=== PATIENT | male | born 1970 | race Caucasian/White ===

== ENCOUNTER 2017-06-12 19:37 | Emergency (ER) | payer OTHER ==
--- NOTE | 2017-06-12 21:02 | PDOC ---
Rapid Medical Evaluation Chief Complaint: Syncope/Near Syncope Time Seen by Provider: 06/12/17 20:57 Medical Evaluation: Allergies Allergy/AdvReac Type Severity Reaction Status Date / Time Penicillins Allergy Unknown Verified 09/02/15 14:17 06/12/17 20:57 I have performed a brief in-person evaluation of this patient. slipped of a ladder at work at 4 pm c/o right hip pain with pain to groin and pain running down right leg. fall after feeling dizzy. patient reports inhaling gas fumes and concerned about carbon monoxide exposure. PMHX: anxiety, diabetes. pertinent physical exam findings: patient alert ox3, reports feeling dizzy now. walking with limp able to weight bear. I have ordered the following: cbc, cmp, ekg, cardiac, carbo right hip/ pelvis the patient will proceed to the ED for further evaluation. 06/12/17 21:04 Discharge Disposition - Referrals Referrals: Gordo Aguayo MD [Primary Care Provider] - - Patient Instructions - Post Discharge Activity
[2017-06-12 21:07] VITALS: BP 133/78; PULSE 103; TEMP 97.6; BMI 34.0
[2017-06-12 21:41] LABS: BASOPHIL 0.9 % (0-2.0); EOSINOPHIL 1.1 % (0-4.5); MCH 31.1 pg (25.7-33.7); MCHC 33.7 g/dl (32.0-35.9); MEAN CELL VOLUME 92.1 fl (80-96); MEAN PLT VOLUME 7.3 fl (7.5-11.1); NEUTROPHILS 59.6 % (42.8-82.8); PLATELET COUNT 254 K/MM3 (134-434); WHITE BLOOD COUNT 12.4 K/mm3 (4.0-10.0)
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
[2017-06-12 22:26] LABS: ANION GAP 11 (8-16); BILIRUBIN,TOTAL 0.4 mg/dL (0.2-1.0); CALCIUM 8.7 mg/dL (8.5-10.1); CO2 23 mmol/L (21-32); CREATININE 0.8 mg/dL (0.7-1.3); GLUCOSE,RANDOM 269 mg/dL (74-106); SGPT/ALT 33 U/L (12-78); TOT PROT 7.7 g/dl (6.4-8.2)
[2017-06-12 22:28] LABS: ALK PHOS 101 U/L (45-117); TROPONIN I < 0.02 ng/ml (0.00-0.05)
[2017-06-12 22:32] LABS: SGOT/AST 24 U/L (15-37)
[2017-06-12 22:33] LABS: CPK 126 IU/L (39-308)
[2017-06-12] MEDS ORDERED: KETOROLAC TROMETHAMINE 30 MG/1 ML VIAL IVPUSH ONE (23:46)
[2017-06-12] MEDS ORDERED: KETOROLAC TROMETHAMINE 60 MG/2 ML VIAL IM ONE (23:53)
[2017-06-12] MEDS ORDERED: KETOROLAC TROMETHAMINE 60 MG/2 ML VIAL ONE (23:55)
[2017-06-13] MEDS ORDERED: IBUPROFEN 600 MG TABLET (FP) PO ONE (00:07)
--- NOTE | 2017-06-13 10:01 | EKG ---
Test Reason : Blood Pressure : / mmHG Vent. Rate : 098 BPM Atrial Rate : 098 BPM P-R Int : 158 ms QRS Dur : 094 ms QT Int : 356 ms P-R-T Axes : 035 -17 042 degrees QTc Int : 454 ms NORMAL SINUS RHYTHM CANNOT RULE OUT ANTERIOR INFARCT (CITED ON OR BEFORE 19-NOV-2014) ABNORMAL ECG WHEN COMPARED WITH ECG OF 19-NOV-2014 09:24, NO SIGNIFICANT CHANGE WAS FOUND Confirmed by TROY ROBERTS MD ([id number]) on 06/13/2017 10:00:59 AM Referred By: Confirmed By:TROY ROBERTS MD
== END 2017-06-13 02:06 | disposition home or self-care (01) ==
LOC: JER 19:37
DX: T58.01XA Toxic effect of carbon monoxide from motor vehicle exhaust, accidental (unintentional), initial encounter (principal); R42 Dizziness and giddiness; M25.551 Pain in right hip; W11.XXXA Fall on and from ladder, initial encounter; Y93.89 Activity, other specified; Y92.524 Gas station as the place of occurrence of the external cause; Y99.0 Civilian activity done for income or pay; I10 Essential (primary) hypertension; E11.9 Type 2 diabetes mellitus without complications; Z79.84 Long term (current) use of oral hypoglycemic drugs; E78.00 Pure hypercholesterolemia, unspecified; F41.9 Anxiety disorder, unspecified; F17.210 Nicotine dependence, cigarettes, uncomplicated
CPT/HCPCS: 36415; 71020-TC; 73523-TC; 73552-TC-RT; 76870-TC; 80053; 82550; 84484; 85025; 93005; 93010; 99281-25

== ENCOUNTER 2018-06-14 10:58 | Inpatient (IN) | payer OTHER ==
[2018-06-14 11:35] VITALS: BMI 34.0
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
[2018-06-14] MEDS ORDERED: METHADONE HCL 10 MG TABLET (FOR DETOX USE ONLY) PO ONE ×2 (15:09→23:00)
[2018-06-14] MEDS ORDERED: guaiFENesin/D-METHORPHAN HB 10 ML UNIT-DOSE CUPS PO PRN (15:09)
[2018-06-14] MEDS ORDERED: P-EPHED 60MG/TRIPROLIDI 2.5MG TABLET PO PRN (15:09)
[2018-06-14] MEDS ORDERED: NICOTINE POLACRILEX 4 MG GUM BUC PRN (15:09)
[2018-06-14] MEDS ORDERED: MAG HYDROX/AL HYDROX/SIMETH 30 ML UNIT-DOSE CUP PO PRN (15:09)
[2018-06-14] MEDS ORDERED: ACETAMINOPHEN 325 MG TABLET (FP) PO PRN (15:09)
[2018-06-14] MEDS ORDERED: LOPERAMIDE HCL 2 MG CAPSULE PO PRN (15:09)
[2018-06-14] MEDS ORDERED: MENTHOL/PHENOL 1 EACH UD MM PRN (15:09)
[2018-06-14] MEDS ORDERED: IBUPROFEN 400 MG TABLET (FP) PO PRN (15:09)
[2018-06-14] MEDS ORDERED: MAGNESIUM CITRATE 300 ML BOTTLE PO PRN (15:09)
[2018-06-14] MEDS ORDERED: MAGNESIUM HYDROX 2400MG/30ML ORAL SUSPENSION 30 ML CUP PO PRN (15:09)
[2018-06-14] MEDS: NICOTINE 21 MG/24 HOURS TOPICAL PATCH TD SCH (17:09)
[2018-06-14] MEDS: diazePAM 5 MG TABLET PO PRN ×2 (17:11→22:47)
[2018-06-14] MEDS: PANTOPRAZOLE 20 MG TABLET (FP) PO SCH (17:14)
[2018-06-14] MEDS: metFORMIN HCL 500 MG TABLET (FP) PO SCH (17:14)
[2018-06-14] MEDS: LISINOPRIL 10 MG TABLET (FP) PO SCH (17:15)
[2018-06-14] MEDS: INSULIN SLIDING SCALE (NOVOLOG) 1 VIAL SQ SCH ×2 (17:21→22:57)
[2018-06-14] MEDS: ATORVASTATIN CA 10 MG TABLET (FP) PO SCH (22:48)
[2018-06-14] MEDS: THIAMINE HCL 100 MG TABLET (FP) PO SCH (22:48)
[2018-06-14] MEDS: MELATONIN 5 MG TABLETS PO PRN (22:49)
[2018-06-14 23:08] LABS: URINE APPEARANCE CLEAR; URINE BILIRUBIN NEGATIVE (<2.0 mg/dL); URINE COLOR LTYELLOW; URINE GLUCOSE (UA) 3+ (NEGATIVE); URINE KETONE NEGATIVE (NEGATIVE); URINE LEUK ESTERASE NEGATIVE (NEGATIVE); URINE NITRITE NEGATIVE (NEGATIVE); URINE PROTEIN NEGATIVE (NEGATIVE); URINE UROBILINOGEN NEGATIVE mg/dL (0.2-1.0)
[2018-06-15] MEDS: diazePAM 5 MG TABLET PO PRN ×4 (05:11→22:11)
[2018-06-15] MEDS: metFORMIN HCL 500 MG TABLET (FP) PO SCH ×2 (06:52→16:57)
[2018-06-15] MEDS: INSULIN SLIDING SCALE (NOVOLOG) 1 VIAL SQ SCH ×4 (06:52→22:11)
[2018-06-15] MEDS ORDERED: METHADONE HCL 10 MG TABLET (FOR DETOX USE ONLY) PO ONE (10:00)
[2018-06-15] MEDS: PANTOPRAZOLE 20 MG TABLET (FP) PO SCH (10:18)
[2018-06-15] MEDS: PRENATAL VITAMINS W/ FOLIC ACID TABLET (FP) PO SCH (10:18)
[2018-06-15] MEDS: LISINOPRIL 10 MG TABLET (FP) PO SCH (10:18)
[2018-06-15 10:19] LABS: HEMATOCRIT 44.3 % (35.4-49); HEMOGLOBIN 14.4 GM/dL (11.7-16.9); MCH 31.5 pg (25.7-33.7); MCHC 32.5 g/dl (32.0-35.9); MEAN CELL VOLUME 96.7 fl (80-96); MEAN PLT VOLUME 7.5 fl (7.5-11.1); PLATELET COUNT 206 K/MM3 (134-434); RBC 4.58 M/mm3 (4.00-5.60); RDW 13.9 % (11.9-15.9); WHITE BLOOD COUNT 10.4 K/mm3 (4.0-10.0)
[2018-06-15] MEDS: NICOTINE 21 MG/24 HOURS TOPICAL PATCH TD SCH (10:20)
[2018-06-15 10:49] LABS: ALBUMIN 3.7 g/dl (3.4-5.0); ALK PHOS 87 U/L (45-117); ANION GAP 8 MMOL/L (8-16); BILIRUBIN,TOTAL 0.5 mg/dL (0.2-1); BLOOD UREA NITROGEN 11 mg/dL (7-18); CALCIUM 9.1 mg/dL (8.5-10.1); CHLORIDE 103 mmol/L (98-107); CO2 28 mmol/L (21-32); CREATININE 0.7 mg/dL (0.55-1.3); GLUCOSE,RANDOM 113 mg/dL (74-106); POTASSIUM 4.6 mmol/L (3.5-5.1); SGOT/AST 19 U/L (15-37); SGPT/ALT 29 U/L (13-61); SODIUM 139 mmol/L (136-145); TOT PROT 6.9 g/dl (6.4-8.2)
[2018-06-15] MEDS: PATIENT'S OWN MEDICATION (NON-FORMULARY) (Meloxicam [Meloxicam] 7.5 MG) PO SCH ×2 (13:36→13:37)
--- NOTE | 2018-06-15 14:34 | PN ---
[facility] COWS - Scale Resting Pulse: 0= [place] 80 or Below Sweatin=Flushed/Facial Moisture Restless Observation: 1= Difficult to Sit Still Pupil Size: 0= Normal to Room Light Bone or Joint Aches: 1= Mild Discomfort Runny Nose/ Eye Tearin= None GI Upset > 30mins: 0= None Tremor Observation of Outstretched Hands: 2= Slight Tremor Visible Yawning Observation: 0= None Anxiety or Irritability: 1=Feels Anxious/Irritable Goose Flesh Skin: 0=Smooth Skin COWS Score: 7 S Progress Note (SOAP) Subjective: States glad was able start opiate detox. States feels anxious and a little agitated. Stated was very sweaty last night but is a bit better. C/o LBP. States has chronic back pain and was on meloxicam. Not sure if pain is being increased because of withdrawal. Objective: A&O x 3. Mild tremors of hands noted. Increased facial moisture. Gait steady. Vital Signs 06/15/18 09:36 Temperature 97.1 F L Pulse Rate 76 Respiratory 20 Rate Blood Pressure 116/77 Lab Results WBC 10.4 K/mm3 (4.0-10.0) H 06/15/18 07:00 RBC 4.58 M/mm3 (4.00-5.60) 06/15/18 07:00 Hgb 14.4 GM/dL (11.7-16.9) 06/15/18 07:00 Hct 44.3 % (35.4-49) 06/15/18 07:00 MCV 96.7 fl (80-96) H 06/15/18 07:00 MCHC 32.5 g/dl (32.0-35.9) 06/15/18 07:00 RDW 13.9 % (11.9-15.9) 06/15/18 07:00 Plt Count 206 K/MM3 (134-434) 06/15/18 07:00 Sodium 139 mmol/L (136-145) 06/15/18 07:00 Potassium 4.6 mmol/L (3.5-5.1) 06/15/18 07:00 Chloride 103 mmol/L (98-107) 06/15/18 07:00 Carbon Dioxide 28 mmol/L (21-32) 11/19/18 07:00 Anion Gap 8 MMOL/L (8-16) 06/15/18 07:00 BUN 11 mg/dL (7-18) 06/15/18 07:00 Creatinine 0.7 mg/dL (0.55-1.3) 06/15/18 07:00 Random Glucose 113 mg/dL (74-106) H 06/15/18 07:00 Calcium 9.1 mg/dL (8.5-10.1) 06/15/18 07:00 Labs reviewed. Assessment: Withdrawal symptoms. LBP. Meloxicam non-formulary. Plan: Continue detox. Start on diclofenac 75 mg PO BID.
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
[2018-06-15] MEDS: THIAMINE HCL 100 MG TABLET (FP) PO SCH (22:11)
[2018-06-15] MEDS: ATORVASTATIN CA 10 MG TABLET (FP) PO SCH (22:11)
[2018-06-15] MEDS: DICLOFENAC SODIUM 75 MG TABLET.DR PO SCH (22:13)
[2018-06-15] MEDS: MELATONIN 5 MG TABLETS PO PRN (22:13)
--- NOTE | 2018-06-15 23:54 | EKG ---
Test Reason : Blood Pressure : / mmHG Vent. Rate : 081 BPM Atrial Rate : 081 BPM P-R Int : 142 ms QRS Dur : 084 ms QT Int : 364 ms P-R-T Axes : 024 -11 030 degrees QTc Int : 422 ms NORMAL SINUS RHYTHM NORMAL ECG WHEN COMPARED WITH ECG OF 12-JUN-2017 22:18, NO SIGNIFICANT CHANGE WAS FOUND Confirmed by SURENDRA PASTOR MD ([id number]) on 06/15/2018 11:53:55 PM Referred By: Confirmed By:SURENDRA PASTOR MD
[2018-06-16] MEDS: diazePAM 5 MG TABLET PO PRN ×5 (05:34→22:19)
[2018-06-16] MEDS: metFORMIN HCL 500 MG TABLET (FP) PO SCH ×2 (06:12→17:20)
[2018-06-16] MEDS: INSULIN SLIDING SCALE (NOVOLOG) 1 VIAL SQ SCH ×4 (06:41→23:42)
[2018-06-16] MEDS ORDERED: METHADONE HCL 5 MG TABLET (FOR DETOX USE ONLY) PO ONE (10:00)
--- NOTE | 2018-06-16 10:05 | PN ---
BHS COWS - Scale Resting Pulse: 0= [place] 80 or Below Sweatin= Chills/Flushing Restless Observation: 0= Sits Still Pupil Size: 0= Normal to Room Light Bone or Joint Aches: 2= Severe Diffuse Aches Runny Nose/ Eye Tearin= None GI Upset > 30mins: 0= None Tremor Observation of Outstretched Hands: 2= Slight Tremor Visible Yawning Observation: 1= 1-2x During Session Anxiety or Irritability: 2=Irritable/Anxious Goose Flesh Skin: 0=Smooth Skin COWS Score: 8 BHS Progress Note (SOAP) Subjective: PATIENT ANXIOUS, IRRITABLE. C/O CHILLS, SLEEP DISTURBANCE, BODY ACHES. Objective: 06/16/18 10:04 Vital Signs Temperature 96.4 F L 06/16/18 09:22 Pulse Rate 78 06/16/18 09:22 Respiratory Rate 17 06/16/18 09:22 Blood Pressure 116/78 06/16/18 09:22 O2 Sat by Pulse Oximetry (%) Laboratory Tests 06/14/18 06/14/18 06/15/18 15:21 22:32 05:10 WBC RBC Hgb Hct MCV MCH MCHC RDW Plt Count MPV Sodium Potassium Chloride Carbon Dioxide Anion Gap BUN Creatinine Creat Clearance w eGFR POC Glucometer 146 115 Random Glucose Calcium Total Bilirubin AST ALT Alkaline Phosphatase Total Protein Albumin Urine Color Ltyellow Urine Appearance Clear Urine pH 5.0 Ur Specific [place] 1.024 Urine Protein Negative Urine Glucose (UA) 3+ H Urine Ketones Negative Urine Blood Negative Urine Nitrite Negative Urine Bilirubin Negative Urine Urobilinogen Negative Ur Leukocyte Esterase Negative RPR Titer 06/15/18 06/15/18 06/15/18 07:00 07:00 07:00 WBC 10.4 H RBC 4.58 Hgb 14.4 Hct 44.3 MCV 96.7 H MCH 31.5 MCHC 32.5 RDW 13.9 Plt Count 206 MPV 7.5 Sodium 139 Potassium 4.6 Chloride 103 Carbon Dioxide 28 Anion Gap 8 BUN 11 Creatinine 0.7 Creat Clearance w eGFR > 60 POC Glucometer Random Glucose 113 H Calcium 9.1 Total Bilirubin 0.5 AST 19 ALT 29 Alkaline Phosphatase 87 Total Protein 6.9 Albumin 3.7 Urine Color Urine Appearance Urine pH Ur Specific [place] Urine Protein Urine Glucose (UA) Urine Ketones Urine Blood Urine Nitrite Urine Bilirubin Urine Urobilinogen Ur Leukocyte Esterase RPR Titer Nonreactive 06/15/18 06/16/18 16:18 05:31 WBC RBC Hgb Hct MCV MCH MCHC RDW Plt Count MPV Sodium Potassium Chloride Carbon Dioxide Anion Gap BUN Creatinine Creat Clearance w eGFR POC Glucometer 199 153 Random Glucose Calcium Total Bilirubin AST ALT Alkaline Phosphatase Total Protein Albumin Urine Color Urine Appearance Urine pH Ur Specific [place] Urine Protein Urine Glucose (UA) Urine Ketones Urine Blood Urine Nitrite Urine Bilirubin Urine Urobilinogen Ur Leukocyte Esterase RPR Titer PE: ALERT AND ORIENTED X 3 SKIN WARM AND DRY CAR S1S2 RESP CTA BL EXT FULL ROM, AMB AD EMMA ANXIOUS, IRRITABLE Assessment: 06/16/18 10:05 WITHDRAWAL SX Plan: CONTINUE DETOX ENCOURAGE ORAL FLUIDS CONTINUE TO MONITOR CLINICALLY
[2018-06-16] MEDS: NICOTINE 21 MG/24 HOURS TOPICAL PATCH TD SCH (10:10)
[2018-06-16] MEDS: DICLOFENAC SODIUM 75 MG TABLET.DR PO SCH ×2 (10:10→22:17)
[2018-06-16] MEDS: PRENATAL VITAMINS W/ FOLIC ACID TABLET (FP) PO SCH (10:11)
[2018-06-16] MEDS: LISINOPRIL 10 MG TABLET (FP) PO SCH (10:11)
[2018-06-16] MEDS: PANTOPRAZOLE 20 MG TABLET (FP) PO SCH (10:11)
[2018-06-16] MEDS: THIAMINE HCL 100 MG TABLET (FP) PO SCH (22:17)
[2018-06-16] MEDS: ATORVASTATIN CA 10 MG TABLET (FP) PO SCH (22:17)
[2018-06-17] MEDS: INSULIN SLIDING SCALE (NOVOLOG) 1 VIAL SQ SCH ×4 (08:09→23:14)
[2018-06-17] MEDS: metFORMIN HCL 500 MG TABLET (FP) PO SCH ×2 (08:10→17:29)
[2018-06-17] MEDS ORDERED: METHADONE HCL 5 MG TABLET (FOR DETOX USE ONLY) PO ONE (10:00)
[2018-06-17] MEDS: DICLOFENAC SODIUM 75 MG TABLET.DR PO SCH ×2 (10:02→22:21)
[2018-06-17] MEDS: LISINOPRIL 10 MG TABLET (FP) PO SCH (10:03)
[2018-06-17] MEDS: PANTOPRAZOLE 20 MG TABLET (FP) PO SCH (10:03)
[2018-06-17] MEDS: PRENATAL VITAMINS W/ FOLIC ACID TABLET (FP) PO SCH (10:03)
[2018-06-17] MEDS: diazePAM 5 MG TABLET PO PRN (10:03)
[2018-06-17] MEDS: NICOTINE 21 MG/24 HOURS TOPICAL PATCH TD SCH (10:03)
--- NOTE | 2018-06-17 12:55 | PN ---
S Progress Note (SOAP) Subjective: Diarrhea, nausea, interrupted sleep Objective: 06/17/18 12:51 Last Vital Signs Temp Pulse Resp BP Pulse Ox 98.4 F 66 18 110/66 06/17/18 10:03 06/17/18 10:03 06/17/18 10:03 06/17/18 10:03 Laboratory Tests 06/14/18 06/14/18 06/15/18 15:21 22:32 05:10 WBC RBC Hgb Hct MCV MCH MCHC RDW Plt Count MPV Sodium Potassium Chloride Carbon Dioxide Anion Gap BUN Creatinine Creat Clearance w eGFR POC Glucometer 146 115 Random Glucose Calcium Total Bilirubin AST ALT Alkaline Phosphatase Total Protein Albumin Urine Color Ltyellow Urine Appearance Clear Urine pH 5.0 Ur Specific [place] 1.024 Urine Protein Negative Urine Glucose (UA) 3+ H Urine Ketones Negative Urine Blood Negative Urine Nitrite Negative Urine Bilirubin Negative Urine Urobilinogen Negative Ur Leukocyte Esterase Negative RPR Titer 06/15/18 06/15/18 06/15/18 07:00 07:00 07:00 WBC 10.4 H RBC 4.58 Hgb 14.4 Hct 44.3 MCV 96.7 H MCH 31.5 MCHC 32.5 RDW 13.9 Plt Count 206 MPV 7.5 Sodium 139 Potassium 4.6 Chloride 103 Carbon Dioxide 28 Anion Gap 8 BUN 11 Creatinine 0.7 Creat Clearance w eGFR > 60 POC Glucometer Random Glucose 113 H Calcium 9.1 Total Bilirubin 0.5 AST 19 ALT 29 Alkaline Phosphatase 87 Total Protein 6.9 Albumin 3.7 Urine Color Urine Appearance Urine pH Ur Specific [place] Urine Protein Urine Glucose (UA) Urine Ketones Urine Blood Urine Nitrite Urine Bilirubin Urine Urobilinogen Ur Leukocyte Esterase RPR Titer Nonreactive 06/15/18 06/16/18 16:18 05:31 WBC RBC Hgb Hct MCV MCH MCHC RDW Plt Count MPV Sodium Potassium Chloride Carbon Dioxide Anion Gap BUN Creatinine Creat Clearance w eGFR POC Glucometer 199 153 Random Glucose Calcium Total Bilirubin AST ALT Alkaline Phosphatase Total Protein Albumin Urine Color Urine Appearance Urine pH Ur Specific [place] Urine Protein Urine Glucose (UA) Urine Ketones Urine Blood Urine Nitrite Urine Bilirubin Urine Urobilinogen Ur Leukocyte Esterase RPR Titer Labs reviewed: elevated glucose, UA shows 3+ glucose Assessment: 06/17/18 12:53 Withdrawal symptoms Noted with hyperglycemia and glycosuria Plan: Continue detox Hyperglycemia and glycosuria: secondary to DM, encouraged PO water intake, continue diabetic regimen, repeat UA
[2018-06-17] MEDS: MELATONIN 5 MG TABLETS PO PRN (22:21)
[2018-06-17] MEDS: ATORVASTATIN CA 10 MG TABLET (FP) PO SCH (22:21)
[2018-06-17] MEDS: THIAMINE HCL 100 MG TABLET (FP) PO SCH (22:21)
[2018-06-18] MEDS: metFORMIN HCL 500 MG TABLET (FP) PO SCH ×2 (06:08→17:20)
[2018-06-18] MEDS: INSULIN SLIDING SCALE (NOVOLOG) 1 VIAL SQ SCH ×5 (06:18→21:54)
[2018-06-18] MEDS ORDERED: METHADONE HCL 10 MG TABLET (FOR DETOX USE ONLY) PO ONE (10:00)
[2018-06-18] MEDS: NICOTINE 21 MG/24 HOURS TOPICAL PATCH TD SCH (10:01)
[2018-06-18] MEDS: PRENATAL VITAMINS W/ FOLIC ACID TABLET (FP) PO SCH (10:01)
[2018-06-18] MEDS: DICLOFENAC SODIUM 75 MG TABLET.DR PO SCH ×2 (10:01→22:11)
[2018-06-18] MEDS: PANTOPRAZOLE 20 MG TABLET (FP) PO SCH (10:01)
[2018-06-18] MEDS: LISINOPRIL 10 MG TABLET (FP) PO SCH (10:01)
--- NOTE | 2018-06-18 10:29 | PN ---
BHS Progress Note (SOAP) Subjective: feeling better no body aches no tremor less sweat sleep better at night Objective: 06/18/18 10:29 Vital Signs Temperature 98.2 F 06/18/18 09:26 Pulse Rate 79 06/18/18 09:26 Respiratory Rate 20 06/18/18 09:26 Blood Pressure 106/70 06/18/18 09:26 O2 Sat by Pulse Oximetry (%) Laboratory Last Values WBC 10.4 K/mm3 (4.0-10.0) H 06/15/18 07:00 RBC 4.58 M/mm3 (4.00-5.60) 06/15/18 07:00 Hgb 14.4 GM/dL (11.7-16.9) 06/15/18 07:00 Hct 44.3 % (35.4-49) 06/15/18 07:00 MCV 96.7 fl (80-96) H 06/15/18 07:00 MCH 31.5 pg (25.7-33.7) 06/15/18 07:00 MCHC 32.5 g/dl (32.0-35.9) 06/15/18 07:00 RDW 13.9 % (11.9-15.9) 06/15/18 07:00 Plt Count 206 K/MM3 (134-434) 06/15/18 07:00 MPV 7.5 fl (7.5-11.1) 06/15/18 07:00 Sodium 139 mmol/L (136-145) 06/15/18 07:00 Potassium 4.6 mmol/L (3.5-5.1) 06/15/18 07:00 Chloride 103 mmol/L (98-107) 06/15/18 07:00 Carbon Dioxide 28 mmol/L (21-32) 06/15/18 07:00 Anion Gap 8 MMOL/L (8-16) 06/15/18 07:00 BUN 11 mg/dL (7-18) 06/15/18 07:00 Creatinine 0.7 mg/dL (0.55-1.3) 06/15/18 07:00 Creat Clearance w eGFR > 60 (>60) 06/15/18 07:00 POC Glucometer 178 UNITS (80-120) 06/18/18 05:14 Random Glucose 113 mg/dL (74-106) H 06/15/18 07:00 Calcium 9.1 mg/dL (8.5-10.1) 06/15/18 07:00 Total Bilirubin 0.5 mg/dL (0.2-1) 06/15/18 07:00 AST 19 U/L (15-37) 06/15/18 07:00 ALT 29 U/L (13-61) 06/15/18 07:00 Alkaline Phosphatase 87 U/L (45-117) 06/15/18 07:00 Total Protein 6.9 g/dl (6.4-8.2) 06/15/18 07:00 Albumin 3.7 g/dl (3.4-5.0) 06/15/18 07:00 Urine Color Ltyellow 06/14/18 22:32 Urine Appearance Clear 06/14/18 22:32 Urine pH 5.0 (5.0-8.0) 06/14/18 22:32 Ur Specific [place] 1.024 (1.010-1.035) 06/14/18 22:32 Urine Protein Negative (NEGATIVE) 06/14/18 22:32 Urine Glucose (UA) 3+ (NEGATIVE) H 06/14/18 22:32 Urine Ketones Negative (NEGATIVE) 06/14/18 22:32 Urine Blood Negative (NEGATIVE) 06/14/18 22:32 Urine Nitrite Negative (NEGATIVE) 06/14/18 22:32 Urine Bilirubin Negative (<2.0 mg/dL) 06/14/18 22:32 Urine Urobilinogen Negative mg/dL (0.2-1.0) 06/14/18 22:32 Ur Leukocyte Esterase Negative (NEGATIVE) 06/14/18 22:32 RPR Titer Nonreactive (NONREACTIVE) 06/15/18 07:00 lab noted Assessment: 06/18/18 10:31 mild withdrawal sx Plan: medically supervised detox
[2018-06-18] MEDS: MELATONIN 5 MG TABLETS PO PRN (22:11)
[2018-06-18] MEDS: THIAMINE HCL 100 MG TABLET (FP) PO SCH (22:11)
[2018-06-18] MEDS: ATORVASTATIN CA 10 MG TABLET (FP) PO SCH (22:11)
[2018-06-19 01:46] LABS: URINE APPEARANCE CLOUDY; URINE BILIRUBIN NEGATIVE (<2.0 mg/dL); URINE COLOR AMBER; URINE GLUCOSE (UA) NEGATIVE (NEGATIVE); URINE KETONE NEGATIVE (NEGATIVE); URINE LEUK ESTERASE NEGATIVE (NEGATIVE); URINE NITRITE NEGATIVE (NEGATIVE); URINE PROTEIN 1+ (NEGATIVE); URINE UROBILINOGEN NEGATIVE mg/dL (0.2-1.0)
[2018-06-19 02:19] LABS: CALCIUM OXALATE CRYSTALS RARE /hpf (NONE SEEN); EPI CELLS RARE /HPF (FEW); URINE BACTERIA RARE /hpf (NONE SEEN); URINE HYALINE CAST 19 /lpf; URINE MUCUS FEW
[2018-06-19] MEDS ORDERED: METHADONE HCL 5 MG TABLET (FOR DETOX USE ONLY) PO ONE (06:00)
[2018-06-19] MEDS: metFORMIN HCL 500 MG TABLET (FP) PO SCH (06:04)
[2018-06-19] MEDS: INSULIN SLIDING SCALE (NOVOLOG) 1 VIAL SQ SCH (06:04)
[2018-06-19 06:05] VITALS: BP 91/67; PULSE 75; TEMP 97
--- NOTE | 2018-06-19 11:18 | DS ---
[facility] Discharge Summary Admission Date: 06/14/18 Discharge Date: 06/19/18 - History Present History: Opioid Dependence - Physical Exam Results Vital Signs: Vital Signs Temperature 97 F L 06/19/18 06:04 Pulse Rate 75 06/19/18 06:04 Respiratory Rate 18 06/19/18 06:04 Blood Pressure 91/67 06/19/18 06:04 O2 Sat by Pulse Oximetry (%) - Treatment Hospital Course: Detox Protocol Followed, Detoxed Safely, Responded well, Discharged Condition Good, Rehab Referral Accepted Patient has Accepted a Rehab Referral to: [facility] - Medication Discharge Medications: Ambulatory Orders Oxycodone HCl/Acetaminophen [Percocet 5-325 mg Tablet] 1 - 2 tab PO Q6H PRN #6 tab 09/02/15 Meloxicam 7.5 mg PO DAILY 06/14/18 Omeprazole 20 mg PO DAILY 06/14/18 Lisinopril [Prinivil] 10 mg PO DAILY #14 tablet 06/18/18 Metformin HCl [Glucophage] 1,000 mg PO BID #30 tablet 06/18/18 Simvastatin [Zocor -] 20 mg PO HS #14 tablet 06/18/18 - Diagnosis (1) Opioid dependence with withdrawal Status: Resolved - AMA Did Patient Leave Against Medical Advice: No
== END 2018-06-19 09:55 | disposition home or self-care (01) | DRG 773 ==
LOC: YASAS 10:58 → Y3N 15:57
PROC: HZ2ZZZZ Detoxification Services for Substance Abuse Treatment (ICD-10-PCS; principal; 2018-06-14)
DX: F11.23 Opioid dependence with withdrawal (principal); F17.213 Nicotine dependence, cigarettes, with withdrawal; F19.24 Other psychoactive substance dependence with psychoactive substance-induced mood disorder; I10 Essential (primary) hypertension; E78.00 Pure hypercholesterolemia, unspecified; E10.65 Type 1 diabetes mellitus with hyperglycemia; Z79.84 Long term (current) use of oral hypoglycemic drugs; K21.9 Gastro-esophageal reflux disease without esophagitis; M54.5 Low back pain; G89.29 Other chronic pain; R51 Headache; R45.89 Other symptoms and signs involving emotional state; Z86.73 Personal history of transient ischemic attack (TIA), and cerebral infarction without residual deficits; Z95.0 Presence of cardiac pacemaker; Z98.890 Other specified postprocedural states; Z88.0 Allergy status to penicillin
CPT/HCPCS: 36415; 80053; 81003; 81015; 82962; 85027; 86593; 93005; 93010

== ENCOUNTER 2019-04-26 16:15 | Emergency (ER) | payer OTHER ==
[2019-04-26] MEDS ORDERED: ACETAMINOPHEN 500 MG TABLET (FP) PO ONE (16:32)
--- NOTE | 2019-04-26 16:32 | PDOC ---
Rapid Medical Evaluation Time Seen by Provider: 04/26/19 16:27 Medical Evaluation: Allergies Allergy/AdvReac Type Severity Reaction Status Date / Time Penicillins Allergy Unknown Verified 06/14/18 12:23 04/26/19 16:28 CC: right elbow, right knee, left shoulder, left ankle pain s/p fall out of golf cart. Denies head trauma or LOC. PE: No focal findings Orders: xrays, tylenol Patient to proceed to ED for evaluation. 04/26/19 16:32 Discharge Disposition - Diagnosis Fall - Referrals - Patient Instructions - Post Discharge Activity
[2019-04-26 16:35] VITALS: BP 140/78; PULSE 107; TEMP 98.7; BMI 33.7
[2019-04-26] MEDS ORDERED: ACETAMINOPHEN 500 MG TABLET (FP) ONE (16:54)
--- NOTE | 2019-04-26 17:25 | PDOC ---
History of Present Illness - General Stated Complaint: FALL Time Seen by Provider: 04/26/19 16:27 History Source: Patient Exam Limitations: No Limitations - History of Present Illness Initial Comments: 04/26/19 17:37 49 year old male with medical history of DM, HTN presents with reports of pain in right knee, right elbow, left elbow and left shoulder. States he fell out of a golf cart at work today. Denies head strike or loc. Occurred: reports: just prior to arrival Severity: reports: mild Pain Location: reports: lower extremity, upper extremity Method of Injury: Yes: fall Modifying Factors: improves with: immobilization Loss of Consciousness: no loss of consciousness Associated Symptoms (Fall): denies symptoms Past History - Travel Traveled outside of the country in the last 30 days: No Close contact w/someone who was outside of country & ill: No - Past Medical History Allergies/Adverse Reactions: Allergies Allergy/AdvReac Type Severity Reaction Status Date / Time Penicillins Allergy Unknown Verified 04/26/19 16:29 Home Medications: Ambulatory Orders Oxycodone HCl/Acetaminophen [Percocet 5-325 mg Tablet] 1 - 2 tab PO Q6H PRN #6 tab 09/02/15 Meloxicam 7.5 mg PO DAILY 06/14/18 Omeprazole 20 mg PO DAILY 06/14/18 Lisinopril [Prinivil] 10 mg PO DAILY #14 tablet 06/18/18 Metformin HCl [Glucophage] 1,000 mg PO BID #30 tablet 06/18/18 Simvastatin [Zocor -] 20 mg PO HS #14 tablet 06/18/18 Anemia: No Asthma: No Cancer: No Cardiac Disorders: No CVA: Yes COPD: No CHF: No DVT: No Dementia: No Diabetes: Yes Dialysis: No GI Disorders: Yes (Acid reflux) Disorders: No HTN: Yes (On meds) Hypercholesterolemia: Yes (On meds) Kidney Stones: No Liver Disease: No Psychiatric Problems: Yes (ANXIETY.) Seizures: No Thyroid Disease: No Lung CA: No - Surgical History Abdominal Surgery: No Appendectomy: No Cardiac Surgery: No Cholecystectomy: No Gastric Stapling: No GI Surgery: No Lung Surgery: No Neurologic Surgery: No Orthopedic Surgery: Yes (left shoulder 2013, lumbar discectomy 2013) - Reproductive History Testicular Surgery: No - Immunization History Immunization Up to Date: Yes - Psycho Social/Smoking Cessation Hx Smoking History: Current every day smoker Have you smoked in the past 12 months: Yes Number of Cigarettes Smoked Daily: 20 Cigars Per Day: 0 Information on smoking cessation initiated: Yes 'Breaking Loose' booklet given: 06/14/18 Hx Alcohol Use: No Drug/Substance Use Hx: No Substance Use Type: Opiates, Prescribed Hx Substance Use Treatment: No Trauma Specific PMHX - Complaint Specific PMHX Arthritis: No Neck Injury: No Hx Sacro Iliac Joint Dysfunction: No Review of Systems - Review of Systems Able to Perform ROS?: Yes Is the patient limited Latvian proficient: No Constitutional: No: Chills, Fever HEENTM: No: Nose Congestion, Throat Swelling Respiratory: No: Orthopnea, Wheezing Cardiac (ROS): No: Lightheadedness, Palpitations ABD/GI: No: Abdominal Distended : No: Dysuria, Urgency, Testicular Swelling Musculoskeletal: No: Gout, Joint Pain, Neck Pain Integumentary: No: Bruising Neurological: No: Numbness, Paresthesia *Physical Exam - Vital Signs Last Vital Signs Temp Pulse Resp BP Pulse Ox 98.7 F 107 H 18 140/78 97 04/26/19 16:30 04/26/19 16:30 04/26/19 16:30 04/26/19 16:30 04/26/19 16:30 - Physical Exam General Appearance: Yes: Nourished, Apparent Distress HEENT: positive: TMs Normal, Pharynx Normal Neck: positive: Supple. negative: Lymphadenopathy (R), Lymphadenopathy (L) Respiratory/Chest: positive: Lungs Clear Cardiovascular: positive: Regular Rhythm, Regular Rate Extremity: positive: Normal Capillary Refill, Swelling, Inflammation, Other ( right knee swelling, left elbow with abrasion, FROM of left elbow, left shoulder , abrasion to right elbow) Neurologic: positive: Fully Oriented, Alert ED Treatment Course - Medications Given in the ED: ED Medications Discontinued Medications Generic Name Dose Route Start Last Admin Trade Name Freq PRN Reason Stop Dose Admin Acetaminophen 1,000 mg 04/26/19 16:32 04/26/19 16:55 Tylenol - PO 04/26/19 16:33 1,000 mg ONCE ONE Administration Medical Decision Making - Medical Decision Making 04/26/19 17:44 49 year old male with medical history of DM, HTN presents with reports of pain in right knee, right elbow, left elbow and left shoulder. States he fell out of a golf cart at work today. s/p fall with injuries to upper and lower limb -request to sign out ama states his doctor will follow up with him and check his doctor will check the results on the computer 04/26/19 20:04 Patient signed out AMA all risk discussed with patient of not continuing treatment. STates he only came in for an xray his doctor will treat him if there is a fracture or if anything else is wrong. STates he was not told to wait for results. Discharge - Discharge Information Problems reviewed: No Clinical Impression/Diagnosis: Fall Qualifiers: Encounter type: initial encounter Qualified Code(s): W19.XXXA - Unspecified fall, initial encounter Condition: Stable Disposition: AGAINST MEDICAL ADVICE - Admission No - Follow up/Referral Referrals: G[facility] [Primary Care Provider] - Call tomorrow (c) - Patient Discharge Instructions Additional Instructions: Please follow up with primary physician It is important that you follow up with primary physician for treatment - Post Discharge Activity
== END 2019-04-26 17:40 | disposition left against medical advice (07) ==
LOC: JERFT 16:15 → JER 16:15 → JERFT 17:40
DX: M25.512 Pain in left shoulder (principal); M25.522 Pain in left elbow; M25.521 Pain in right elbow; M25.561 Pain in right knee; I10 Essential (primary) hypertension; E11.9 Type 2 diabetes mellitus without complications; Z79.84 Long term (current) use of oral hypoglycemic drugs; E78.00 Pure hypercholesterolemia, unspecified; F41.9 Anxiety disorder, unspecified; K21.9 Gastro-esophageal reflux disease without esophagitis; Z86.73 Personal history of transient ischemic attack (TIA), and cerebral infarction without residual deficits; V86.59XA Driver of other special all-terrain or other off-road motor vehicle injured in nontraffic accident, initial encounter; Y92.488 Other paved roadways as the place of occurrence of the external cause; Y93.89 Activity, other specified; Y99.0 Civilian activity done for income or pay; F17.210 Nicotine dependence, cigarettes, uncomplicated; Z88.0 Allergy status to penicillin
CPT/HCPCS: 73030-TC-LT-FY; 73070-TC-RT-FY; 73562-TC-RT-FY; 73610-TC-LT-FY; 73630-TC-LT; 99281-25

== ENCOUNTER 2020-02-09 12:59 | Inpatient (IN) | payer OTHER ==
--- NOTE | 2020-02-09 13:28 | BHS.RME ---
Substance Use & Tx History - Substance Use History OxyContin Substance amount: 10 mg 20-30 tabs Frequency of use: Daily Substance route: Oral Date of Last Use: 02/07/20 - Last Treatment Date of last treatment: 2017 Treatment type: Substance Use Disorder (DAVID) Where was last treatment: Detox Physical/Psych/Mental Status - Behavior General Behavior: Increased activity (restlessness, agitation) Eye Contact: Normal - Cooperativeness Cooperativeness: Cooperative - Thinking Thought Processes: Tight, Logical, Goal Directed Thought content: Future oriented - Physical Health Problems Is patient presently having any pain?: No Does patient presently have any injuries (include location): No Does patient currently have a fever: No Is patient : No COWS - Scale Resting Pulse: 1= [place] 81-100 Sweatin= Chills/Flushing Restless Observation: 1= Difficult to Sit Still Pupil Size: 2= Moderately Dilated Bone or Joint Aches: 4=Acute Joint/Muscle Pain Runny Nose/ Eye Tearin= Runny Nose/Eyes GI Upset > 30mins: 2= Nausea/Diarrhea Tremor Observation: 1= Tremor [place], Not Seen Yawning Observation: 1= 1-2x During Session Anxiety or Irritability: 1=Feels Anxious/Irritable Goose Flesh Skin: 3=Piloerection COWS Score: 19
[2020-02-09 14:41] VITALS: BMI 29.2
--- NOTE | 2020-02-09 15:19 | HP ---
COWS - Scale Resting Pulse: 1= [place] 81-100 Sweatin= Chills/Flushing Restless Observation: 1= Difficult to Sit Still Pupil Size: 2= Moderately Dilated Bone or Joint Aches: 4=Acute Joint/Muscle Pain Runny Nose/ Eye Tearin= Runny Nose/Eyes GI Upset > 30mins: 2= Nausea/Diarrhea Tremor Observation: 1= Tremor [place], Not Seen Yawning Observation: 1= 1-2x During Session Anxiety or Irritability: 1=Feels Anxious/Irritable Goose Flesh Skin: 3=Piloerection COWS Score: 19 CIWA Score - Admission Criteria [facility]ASAS Guidelines: Admission for Medically Managed Detox: Requires at least one of the followin. CIWA greater than 12 2. Seizures within the past 24 hours 3. Delirium tremens within the past 24 hours 4. Hallucinations within the past 24 hours 5. Acute intervention needed for co occurring medical disorder 6. Acute intervention needed for co occurring psychiatric disorder 7. Severe withdrawal that cannot be handled at a lower level of care (continued vomiting, continued diarrhea, abnormal vital signs) requiring intravenous medication and/or fluids 8. Admitting History and Physical - Admission Chief Complaint: Mr. Simpson presents to [facility] requesting detox from opioid use disorder. History of Present Illness: Mr. Simpson presents to [facility] requesting detox from opioid use disorder. He is s/p MVa and then on prescription opioids. He became addited but was able to stop in 2018. He relapesed to use about 6 mos ago. His last detox was in 2018. PMH: HLD, GERTD, HTN, DM PSH: lumbar disc surgery 2014, left shoulder arthroscopic Psych: none Soc: lives in [facility] Legal: none Substance Use History OxyContin Substance amount: 10 mg 20-30 tabs Frequency of use: Daily Substance route: Oral Date of Last Use: 02/07/20 First use 2013 No OD No seizures - Last Treatment Date of last treatment: 2017 Treatment type: Substance Use Disorder (DAVID) Where was last treatment: Detox History Source: Patient Limitations to Obtaining History: No Limitations - Smoking History Smoking history: Current every day smoker Have you smoked in the past 12 months: Yes Aproximately how many cigarettes per day: 20 - Alcohol/Substance Use Hx Alcohol Use: No Admission ROS S - HPI Allergies/Adverse Reactions: Allergies Allergy/AdvReac Type Severity Reaction Status Date / Time Penicillins Allergy Unknown Verified 02/09/20 14:43 - Ebola screening Have you traveled outside of the country in the last 21 days: No Have you been sick,other than usual withdrawal symptoms: No Do you have a fever: No - Review of Systems Constitutional: No Symptoms Reported EENT: reports: No Symptoms Reported Respiratory: reports: No Symptoms reported Cardiac: reports: No Symptoms Reported GI: reports: Nausea : reports: No Symptoms Reported Musculoskeletal: reports: Back Pain Integumentary: reports: No Symptoms Reported Neuro: reports: No Symptoms reported Endocrine: reports: Other (no home glucose monitoring) Hematology: reports: No Symptoms Reported Psychiatric: reports: Anxious Patient History - Patient Medical History Hx Anemia: No Hx Asthma: No Hx Chronic Obstructive Pulmonary Disease (COPD): No Hx Cancer: No Hx Cardiac Disorders: No Hx Congestive Heart Failure: No Hx Hypertension: Yes Hx Hypercholesterolemia: Yes (On meds) Hx Pacemaker: Yes HX Cerebrovascular Accident: Yes Hx Seizures: No Hx Dementia: No Hx Diabetes: Yes Hx Gastrointestinal Disorders: No Hx Liver Disease: No Hx Genitourinary Disorders: No Hx Sexually Transmitted Disorders: No Hx Renal Disease (ESRD): No Hx Thyroid Disease: No Hx Human Immunodeficiency Virus (HIV): No (Wants testing) Hx Hepatitis C: No Hx Depression: Yes Hx Suicide Attempt: No Hx Bipolar Disorder: No Hx Schizophrenia: No - Patient Surgical History Past Surgical History: Yes Hx Neurologic Surgery: No Hx Cataract Extraction: No Hx Cardiac Surgery: No Hx Lung Surgery: No Hx Breast Surgery: No Hx Breast Biopsy: No Hx Abdominal Surgery: No Hx Appendectomy: No Hx Cholecystectomy: No Hx Genitourinary Surgery: No Hx Section: No Hx Orthopedic Surgery: Yes (left shoulder 2013, lumbar discectomy 2013) Hx Hysterectomy: No Other Surgical History: R ankle fx Anesthesia Reaction: No - PPD History Previous Implant?: Yes Documented Results: Negative w/o proof Implanted On Prior [facility] Admission?: No Date: 06/16/18 - Smoking Cessation Smoking history: Current every day smoker Have you smoked in the past 12 months: Yes Aproximately how many cigarettes per day: 20 Cigars Per Day: 0 Hx Chewing Tobacco Use: No Initiated information on smoking cessation: Yes 'Breaking Loose' booklet given: 02/09/20 - Substances abused Oxycontin Substance route: Oral Frequency: Daily Amount used: 20-30mg (10 pills) Age of first use: 43 Date of last use: 02/07/20 Admission Physical Exam [facility] - Vital Signs Vital Signs: Vital Signs - 24 hr 02/09/20 14:38 Temperature 98.5 F Pulse Rate 82 Respiratory 14 Rate Blood Pressure 145/83 - Physical General Appearance: Yes: No Apparent Distress, Nourished, Anxious HEENTM: Yes: EOMI, Hearing grossly Normal, Normocephalic, Normal Voice Respiratory: Yes: Lungs Clear, Normal Breath Sounds, No Accessory Muscle Use Neck: Yes: Within Normal Limits, Supple Breast: Yes: Breast Exam Deferred Cardiology: Yes: Regular Rhythm, Regular Rate Abdominal: Yes: Normal Bowel Sounds, Non Tender, Flat, Soft Genitourinary: Yes: Other (deferred) Back: Yes: Normal Inspection Musculoskeletal: Yes: Gait Steady Extremities: Yes: Normal Inspection, Non-Tender Neurological: Yes: Alert, Normal Mood/Affect, Normal Response Integumentary: Yes: Normal Color, Dry, Warm - Diagnostic (1) HLD (hyperlipidemia) Current Visit: Yes Status: Acute (2) Low back pain Current Visit: No Status: Chronic (3) Opioid dependence, uncomplicated Current Visit: Yes Status: Acute (4) DM (diabetes mellitus) Current Visit: Yes Status: Chronic Qualifiers: (5) GERD (gastroesophageal reflux disease) Current Visit: No Status: Chronic (6) Nicotine dependence Current Visit: Yes Status: Acute Qualifiers: Nicotine product type: cigarettes Substance use status: uncomplicated Qualified Code(s): F17.210 - Nicotine dependence, cigarettes, uncomplicated (7) Opioid dependence with withdrawal Current Visit: No Status: Resolved Cleared for Admission [facility] - Detox or Rehab [facility] Level of Care: Medically Managed Detox Regimen/Protocol: Methadone Breathalyzer - Breathalyzer Breathalyzer: 0 Urine Drug Screen - Test Device Lot number: [id number] Expiration date: 03/27/21 - Control Is test valid?: Yes - Results Drug screen NEGATIVE: No Urine drug screen results: OXY-Oxycodone Inpatient Rehab Admission - Rehab Decision to Admit Inpatient rehab admission?: No
[2020-02-09] MEDS ORDERED: NICOTINE POLACRILEX 2 MG GUM BUC PRN (15:25)
[2020-02-09] MEDS ORDERED: ONDANSETRON *ODT* 4 MG TABLET SL PRN (15:25)
[2020-02-09] MEDS ORDERED: BISMUTH SUBSALICYLATE 262 MG/15 ML BTL PO PRN (15:25)
[2020-02-09] MEDS ORDERED: MENTHOL/PHENOL 1 EACH UD MM PRN (15:25)
[2020-02-09] MEDS ORDERED: MAG HYDROX/AL HYDROX/SIMETH 30 ML UNIT-DOSE CUP PO PRN (15:25)
[2020-02-09] MEDS ORDERED: IBUPROFEN 400 MG TABLET (FP) PO PRN (15:25)
[2020-02-09] MEDS ORDERED: ACETAMINOPHEN 325 MG TABLET (FP) PO PRN ×2 (15:25)
[2020-02-09] MEDS ORDERED: MAGNESIUM CITRATE 300 ML BOTTLE PO PRN (15:25)
[2020-02-09] MEDS ORDERED: METHOCARBAMOL 500 MG TABLET PO PRN (15:25)
[2020-02-09] MEDS ORDERED: cloNIDine HCL 0.1 MG TABLET PO PRN (15:25)
[2020-02-09] MEDS ORDERED: METHADONE HCL 10 MG TABLET (FOR DETOX USE ONLY) PO ONE (15:25)
[2020-02-09] MEDS ORDERED: MAGNESIUM HYDROX 2400MG/30ML ORAL SUSPENSION 30 ML CUP PO PRN (15:25)
[2020-02-09] MEDS: metFORMIN HCL 500 MG TABLET (FP) PO SCH (16:56)
[2020-02-09] MEDS: hydrOXYzine PAMOATE 25 MG CAPSULE (FP) PO SCH ×2 (17:09→22:06)
[2020-02-09 17:14] LABS: HEMATOCRIT 43.9 % (35.4-49); HEMOGLOBIN 14.9 GM/dL (11.7-16.9); MCH 32.4 pg (25.7-33.7); MEAN CELL VOLUME 95.3 fl (80-96); MEAN PLT VOLUME 7.8 fl (7.5-11.1); PLATELET COUNT 242 K/MM3 (134-434); RDW 14.1 % (11.9-15.9); WHITE BLOOD COUNT 11.2 K/mm3 (4.0-10.0)
[2020-02-09 17:25] LABS: ALBUMIN 3.8 g/dl (3.4-5.0); BILIRUBIN,TOTAL 0.6 mg/dL (0.2-1); BLOOD UREA NITROGEN 12.7 mg/dL (7-18); CALCIUM 9.5 mg/dL (8.5-10.1); CREATININE 0.8 mg/dL (0.55-1.3); POTASSIUM 4.2 mmol/L (3.5-5.1); TOT PROT 7.2 g/dl (6.4-8.2)
[2020-02-09] MEDS: ATORVASTATIN CA 10 MG TABLET (FP) PO SCH (22:06)
[2020-02-09] MEDS: MELATONIN 5 MG TABLETS PO SCH (22:06)
[2020-02-09] MEDS: THIAMINE HCL 100 MG TABLET (FP) PO SCH (22:06)
[2020-02-10] MEDS: hydrOXYzine PAMOATE 25 MG CAPSULE (FP) PO SCH ×2 (05:45→10:53)
[2020-02-10] MEDS: metFORMIN HCL 500 MG TABLET (FP) PO SCH ×2 (08:26→17:39)
[2020-02-10] MEDS ORDERED: METHADONE HCL 10 MG TABLET (FOR DETOX USE ONLY) ONE (09:52)
[2020-02-10] MEDS ORDERED: METHADONE HCL 5 MG TABLET (FOR DETOX USE ONLY) ONE (09:53)
[2020-02-10] MEDS ORDERED: METHADONE (DETOX) 20 MG, METHADONE (DETOX) 5 MG PO ONE (10:00)
--- NOTE | 2020-02-10 10:30 | PN ---
BHS COWS - Scale Resting Pulse: 0= AR 80 or Below Sweatin= Chills/Flushing Restless Observation: 0= Sits Still Pupil Size: 1= Pupils >than Normal Bone or Joint Aches: 2= Severe Diffuse Aches Runny Nose/ Eye Tearin= Nasal Congestion GI Upset > 30mins: 2= Nausea/Diarrhea Tremor Observation of Outstretched Hands: 2= Slight Tremor Visible Yawning Observation: 0= None Anxiety or Irritability: 2=Irritable/Anxious Goose Flesh Skin: 3=Piloerection COWS Score: 14 BHS Progress Note (SOAP) Subjective: 49 years old male admitted on 02/09/20 for opiate withdrawal sx management treating with methadone detox regiment feeling tired resting in bed limited conversation with staff anxiety with restlessness increase vistaril to 50 mg po q6h discontinue isolation covid pending Objective: 02/10/20 10:32 Vital Signs - 24 hr 02/09/20 02/09/20 02/09/20 14:38 16:24 20:27 Temperature 98.5 F 97.1 F L 97.3 F L Pulse Rate 82 69 77 Respiratory 14 20 17 Rate Blood Pressure 145/83 124/73 116/77 O2 Sat by Pulse 99 97 Oximetry (%) 02/10/20 02/10/20 06:26 08:57 Temperature 96.9 F L 97.5 F L Pulse Rate 60 67 Respiratory 20 18 Rate Blood Pressure 115/74 105/68 O2 Sat by Pulse 100 Oximetry (%) Laboratory Tests 02/09/20 02/09/20 02/09/20 15:15 15:15 15:15 WBC 11.2 H RBC 4.60 Hgb 14.9 Hct 43.9 MCV 95.3 MCH 32.4 MCHC 34.0 RDW 14.1 Plt Count 242 MPV 7.8 Sodium 140 Potassium 4.2 Chloride 106 Carbon Dioxide 26 Anion Gap 8 BUN 12.7 Creatinine 0.8 Est GFR (CKD-EPI)AfAm 121.57 Est GFR (CKD-EPI)NonAf 104.89 POC Glucometer Random Glucose 124 H Calcium 9.5 Total Bilirubin 0.6 AST 19 ALT 26 Alkaline Phosphatase 73 Total Protein 7.2 Albumin 3.8 Syphilis Serology Non-reactive 02/09/20 15:19 WBC RBC Hgb Hct MCV MCH MCHC RDW Plt Count MPV Sodium Potassium Chloride Carbon Dioxide Anion Gap BUN Creatinine Est GFR (CKD-EPI)AfAm Est GFR (CKD-EPI)NonAf POC Glucometer 138 Random Glucose Calcium Total Bilirubin AST ALT Alkaline Phosphatase Total Protein Albumin Syphilis Serology long history of diabetes II treated with metformin 1000mg po bid ac 02/10/20 10:35 Assessment: 02/10/20 10:33 opiate withdrawal 02/10/20 10:35 diabetes Plan: methadone regiment continue metformin
[2020-02-10] MEDS: PRENATAL VITAMINS W/ FOLIC ACID TABLET (FP) PO SCH (10:43)
[2020-02-10] MEDS: PANTOPRAZOLE 40 MG TABLET PO SCH (10:44)
[2020-02-10] MEDS: hydrOXYzine PAMOATE 50 MG CAPSULE (FP) PO SCH ×3 (10:44→22:01)
[2020-02-10] MEDS: NICOTINE 7 MG/24 HOURS TOPICAL PATCH TD SCH (10:46)
[2020-02-10] MEDS: LISINOPRIL 10 MG TABLET (FP) PO SCH (10:46)
--- NOTE | 2020-02-10 12:00 | EKG ---
Test Reason : Blood Pressure : / mmHG Vent. Rate : 070 BPM Atrial Rate : 070 BPM P-R Int : 158 ms QRS Dur : 082 ms QT Int : 384 ms P-R-T Axes : 031 006 034 degrees QTc Int : 414 ms NORMAL SINUS RHYTHM NORMAL ECG WHEN COMPARED WITH ECG OF 14-JUN-2018 17:39, NO SIGNIFICANT CHANGE WAS FOUND Confirmed by LILI ORTIZ MD ([id number]) on 02/10/2020 11:59:50 AM Referred By: HOLA MAURICE Confirmed By:LILI ORTIZ MD
[2020-02-10] MEDS: THIAMINE HCL 100 MG TABLET (FP) PO SCH (21:43)
[2020-02-10] MEDS: MELATONIN 5 MG TABLETS PO SCH (21:44)
[2020-02-10] MEDS: ATORVASTATIN CA 10 MG TABLET (FP) PO SCH (21:44)
[2020-02-11] MEDS: hydrOXYzine PAMOATE 50 MG CAPSULE (FP) PO SCH ×2 (05:47→10:04)
[2020-02-11] MEDS: metFORMIN HCL 500 MG TABLET (FP) PO SCH (07:39)
[2020-02-11 09:16] VITALS: BP 118/67; PULSE 76; TEMP 96.9
[2020-02-11] MEDS ORDERED: METHADONE HCL 10 MG TABLET (FOR DETOX USE ONLY) PO ONE (10:00)
[2020-02-11] MEDS: PRENATAL VITAMINS W/ FOLIC ACID TABLET (FP) PO SCH (10:03)
[2020-02-11] MEDS: LISINOPRIL 10 MG TABLET (FP) PO SCH (10:04)
[2020-02-11] MEDS: NICOTINE 7 MG/24 HOURS TOPICAL PATCH TD SCH (10:04)
[2020-02-11] MEDS: PANTOPRAZOLE 40 MG TABLET PO SCH (10:04)
--- NOTE | 2020-02-11 10:51 | PN ---
BHS COWS - Scale Resting Pulse: 0= DE 80 or Below Sweatin= No chills or Flushing Restless Observation: 0= Sits Still Pupil Size: 0= Normal to Room Light Bone or Joint Aches: 0= None Runny Nose/ Eye Tearin= None GI Upset > 30mins: 0= None Tremor Observation of Outstretched Hands: 0= None Yawning Observation: 0= None Anxiety or Irritability: 0= None Goose Flesh Skin: 0=Smooth Skin COWS Score: 0 BHS Progress Note (SOAP) Subjective: 49 years old male admitted on 02/09/20 for opiate withdrawal sx management treating with methadone detox regiment Patient states he wants to leave detox as he has to return to work. Objective: 02/11/20 11:00 Laboratory Last Values WBC 11.2 K/mm3 (4.0-10.0) H 02/09/20 15:15 RBC 4.60 M/mm3 (4.00-5.60) 02/09/20 15:15 Hgb 14.9 GM/dL (11.7-16.9) 02/09/20 15:15 Hct 43.9 % (35.4-49) 02/09/20 15:15 MCV 95.3 fl (80-96) 02/09/20 15:15 MCH 32.4 pg (25.7-33.7) 02/09/20 15:15 MCHC 34.0 g/dl (32.0-35.9) 02/09/20 15:15 RDW 14.1 % (11.9-15.9) 02/09/20 15:15 Plt Count 242 K/MM3 (134-434) 02/09/20 15:15 MPV 7.8 fl (7.5-11.1) 02/09/20 15:15 Sodium 140 mmol/L (136-145) 02/09/20 15:15 Potassium 4.2 mmol/L (3.5-5.1) 02/09/20 15:15 Chloride 106 mmol/L (98-107) 02/09/20 15:15 Carbon Dioxide 26 mmol/L (21-32) 02/09/20 15:15 Anion Gap 8 MMOL/L (8-16) 02/09/20 15:15 BUN 12.7 mg/dL (7-18) 02/09/20 15:15 Creatinine 0.8 mg/dL (0.55-1.3) 02/09/20 15:15 Est GFR (CKD-EPI)AfAm 121.57 02/09/20 15:15 Est GFR (CKD-EPI)NonAf 104.89 02/09/20 15:15 POC Glucometer 138 UNITS (80-120) 02/09/20 15:19 Random Glucose 124 mg/dL (74-106) H 02/09/20 15:15 Hemoglobin A1c % 6.2 % (4.2-6.3) 02/10/20 07:50 Calcium 9.5 mg/dL (8.5-10.1) 02/09/20 15:15 Total Bilirubin 0.6 mg/dL (0.2-1) 02/09/20 15:15 AST 19 U/L (15-37) 02/09/20 15:15 ALT 26 U/L (13-61) 02/09/20 15:15 Alkaline Phosphatase 73 U/L (45-117) 02/09/20 15:15 Total Protein 7.2 g/dl (6.4-8.2) 02/09/20 15:15 Albumin 3.8 g/dl (3.4-5.0) 02/09/20 15:15 Syphilis Serology Non-reactive (NONREACTIVE) 02/09/20 15:15 Assessment: 02/11/20 11:00 Opiate withdrawal Plan: C/w Methadone detox
--- NOTE | 2020-02-11 11:57 | DS ---
[facility] Detox Discharge Summary Admission Date: 02/09/20 - History Pertinent Past History: Mr. Simpson presented 02/08 Laboratory Tests 02/09/20 02/09/20 02/09/20 15:15 15:15 15:15 WBC 11.2 H RBC 4.60 Hgb 14.9 Hct 43.9 MCV 95.3 MCH 32.4 MCHC 34.0 RDW 14.1 Plt Count 242 MPV 7.8 Sodium 140 Potassium 4.2 Chloride 106 Carbon Dioxide 26 Anion Gap 8 BUN 12.7 Creatinine 0.8 Est GFR (CKD-EPI)AfAm 121.57 Est GFR (CKD-EPI)NonAf 104.89 POC Glucometer Random Glucose 124 H Hemoglobin A1c % Calcium 9.5 Total Bilirubin 0.6 AST 19 ALT 26 Alkaline Phosphatase 73 Total Protein 7.2 Albumin 3.8 Syphilis Serology Non-reactive 02/09/20 02/10/20 15:19 07:50 WBC RBC Hgb Hct MCV MCH MCHC RDW Plt Count MPV Sodium Potassium Chloride Carbon Dioxide Anion Gap BUN Creatinine Est GFR (CKD-EPI)AfAm Est GFR (CKD-EPI)NonAf POC Glucometer 138 Random Glucose Hemoglobin A1c % 6.2 Calcium Total Bilirubin AST ALT Alkaline Phosphatase Total Protein Albumin Syphilis Serology Home Medication List Medication Instructions Recorded Confirmed Type Omeprazole 20 mg PO DAILY 06/14/18 02/09/20 History Active Medications Generic Name Dose Route Start Last Admin Trade Name Freq PRN Reason Stop Dose Admin Acetaminophen 650 mg 02/09/20 15:25 Tylenol - PO Q6H PRN PAIN LEVEL 4 - 6 Acetaminophen 650 mg 02/09/20 15:25 Tylenol - PO Q6H PRN FEVER Al Hydroxide/Mg Hydroxide 30 ml 02/09/20 15:25 Mylanta Oral Suspension - PO Q6H PRN DYSPEPSIA Atorvastatin Calcium 10 mg 02/09/20 22:00 02/10/20 21:44 Lipitor - PO 10 mg HS ARIK Administration Bismuth Subsalicylate 30 ml 02/09/20 15:25 Pepto-Bismol Liquid - PO Q1H PRN DIARRHEA Clonidine 0.1 mg 02/09/20 15:25 02/09/20 22:09 Catapres - PO 02/11/20 23:59 0.1 mg Q4H PRN Administration Withdrawal Symptoms Eucalyptus/Menthol/Phenol/Sorbitol 1 each 02/09/20 15:25 Cepastat Lozenge - MM 02/15/20 15:25 Q4H PRN SORE THROAT Hydroxyzine Pamoate 50 mg 02/10/20 11:00 02/11/20 10:04 Vistaril - PO 50 mg Q6H ARIK Administration Ibuprofen 400 mg 02/09/20 15:25 02/10/20 10:44 Motrin - PO 400 mg Q6H PRN Administration PAIN LEVEL 1 - 3 Lisinopril 10 mg 02/10/20 10:00 02/11/20 10:04 Prinivil PO 10 mg DAILY ARIK Administration Magnesium Citrate 300 ml 02/09/20 15:25 Citroma - PO Q48H PRN CONSTIPATION Magnesium Hydroxide 30 ml 02/09/20 15:25 Milk Of Magnesia - PO PRN PRN CONSTIPATION Melatonin 5 mg 02/09/20 22:00 02/10/20 21:44 Melatonin PO 5 mg HS ARIK Administration Metformin HCl 1,000 mg 02/09/20 16:30 02/11/20 07:39 Glucophage - PO Not Given BID@0700,1630 [facility] Methadone HCl 10 mg/ Methadone 15 mg 02/12/20 10:00 HCl 5 mg PO 02/12/20 10:01 ONCE ONE Methadone HCl 10 mg 02/13/20 10:00 Dolophine - PO 02/13/20 10:01 ONCE ONE Methadone HCl 5 mg 02/14/20 06:00 Dolophine - PO 02/14/20 06:01 ONCE@0600 ONE Methocarbamol 500 mg 02/09/20 15:25 Robaxin - PO 02/15/20 15:25 Q6H PRN MUSCLE SPASMS Nicotine 7 mg 02/10/20 10:00 02/11/20 10:04 Nicoderm Patch - TD Not Given DAILY [facility] Nicotine Polacrilex 2 mg 02/09/20 15:25 Nicorette Gum - BUC Q2H PRN NICOTINE REPLACEMENT RX Ondansetron HCl 4 mg 02/09/20 15:25 Zofran Odt - SL 02/15/20 15:26 Q8H PRN Nausea/Vomiting Pantoprazole Sodium 40 mg 02/10/20 10:00 02/11/20 10:04 Protonix - PO 40 mg DAILY [facility] Administration Multivit/Folic Acid/Iron 1 tab 02/10/20 10:00 02/11/20 10:03 Vitamins (Sjr) - PO 1 tab DAILY ARIK Administration Thiamine HCl 100 mg 02/09/20 22:00 02/10/20 21:43 Vitamin B1 - PO 100 mg HS ARIK Administration Vital Signs (72 hours) 02/09/20 02/09/20 02/09/20 14:38 16:24 20:27 Temperature 98.5 F 97.1 F L 97.3 F L Pulse Rate 82 69 77 Respiratory 14 20 17 Rate Blood Pressure 145/83 124/73 116/77 O2 Sat by Pulse 99 97 Oximetry (%) 02/10/20 02/10/20 02/10/20 06:26 08:57 12:39 Temperature 96.9 F L 97.5 F L 97.1 F L Pulse Rate 60 67 70 Respiratory 20 18 18 Rate Blood Pressure 115/74 105/68 120/73 O2 Sat by Pulse 100 99 Oximetry (%) 02/10/20 02/10/20 02/11/20 16:43 20:38 06:31 Temperature 97.1 F L 97.5 F L 97 F L Pulse Rate 59 L 73 57 L Respiratory 16 18 16 Rate Blood Pressure 115/69 122/73 114/70 O2 Sat by Pulse 99 99 99 Oximetry (%) 02/11/20 08:53 Temperature 96.9 F L Pulse Rate 76 Respiratory 18 Rate Blood Pressure 118/67 O2 Sat by Pulse Oximetry (%) to [facility] requesting detox from opioid use disorder. He is s/p MVa and then on prescription opioids. He became addited but was able to stop in 2018. He relapesed to use about 6 mos ago. His last detox was in 2018. PMH: HLD, GERTD, HTN, DM PSH: lumbar disc surgery 2013, left shoulder arthroscopic Psych: none Soc: lives in [place], [facility] Legal: none Substance Use History OxyContin Substance amount: 10 mg 20-30 tabs Frequency of use: Daily Substance route: Oral Date of Last Use: 02/07/20 First use 2013 No OD No seizures - Last Treatment Date of last treatment: 2017 Treatment type: Substance Use Disorder (DAVID) Where was last treatment: Detox PE Gnl: WDWN, in no distress MS: nl mentation Motor; moves limbs well Coord; nl Gait: steady IMP Opioid use disorder Pt wants to leave, despite converstion about risks of leaving AMA, pt insists on leaving stating he was here "just for a break". He does not want a referral to a methadone or Suboxone program. Plan 1. Discharge AMA - Physical Exam Results Vital Signs: Vital Signs Temperature 96.9 F L 02/11/20 08:53 Pulse Rate 76 02/11/20 08:53 Respiratory Rate 18 02/11/20 08:53 Blood Pressure 118/67 02/11/20 08:53 O2 Sat by Pulse Oximetry (%) 99 02/11/20 06:31 - Treatment Hospital Course: Detox Protocol Followed Patient has Accepted a Rehab Referral to: refused - Medication Discharge Medications: Ambulatory Orders Omeprazole 20 mg PO DAILY 06/14/18 Lisinopril [Prinivil] 10 mg PO DAILY #14 tablet 06/18/18 Metformin HCl [Glucophage] 1,000 mg PO BID #30 tablet 06/18/18 Simvastatin [Zocor -] 20 mg PO HS #14 tablet 06/18/18 - Diagnosis (1) HLD (hyperlipidemia) Current Visit: Yes Status: Acute (2) Low back pain Current Visit: No Status: Chronic (3) Opioid dependence, uncomplicated Current Visit: Yes Status: Acute (4) DM (diabetes mellitus) Current Visit: Yes Status: Chronic Qualifiers: (5) GERD (gastroesophageal reflux disease) Current Visit: No Status: Chronic (6) Nicotine dependence Current Visit: Yes Status: Acute Qualifiers: Nicotine product type: cigarettes Substance use status: uncomplicated Qualified Code(s): F17.210 - Nicotine dependence, cigarettes, uncomplicated (7) Opioid dependence with withdrawal Current Visit: No Status: Resolved - AMA Did Patient Leave Against Medical Advice: Yes
[2020-02-12] MEDS ORDERED: METHADONE (DETOX) 10 MG, METHADONE (DETOX) 5 MG PO ONE (10:00)
[2020-02-13] MEDS ORDERED: METHADONE HCL 10 MG TABLET (FOR DETOX USE ONLY) PO ONE (10:00)
[2020-02-14] MEDS ORDERED: METHADONE HCL 5 MG TABLET (FOR DETOX USE ONLY) PO ONE (06:00)
== END 2020-02-11 11:28 | disposition left against medical advice (07) | DRG 770 ==
LOC: YASAS 12:59 → Y3N 14:58
PROVIDERS: ADMIT Allergy & Immunology; ATTEND Allergy & Immunology
PROC: HZ2ZZZZ Detoxification Services for Substance Abuse Treatment (ICD-10-PCS; principal; 2020-02-09)
DX: F11.23 Opioid dependence with withdrawal (principal); F17.210 Nicotine dependence, cigarettes, uncomplicated; I10 Essential (primary) hypertension; E11.9 Type 2 diabetes mellitus without complications; Z79.84 Long term (current) use of oral hypoglycemic drugs; E78.5 Hyperlipidemia, unspecified; K21.9 Gastro-esophageal reflux disease without esophagitis; M54.5 Low back pain; Z98.890 Other specified postprocedural states; Z88.0 Allergy status to penicillin
CPT/HCPCS: 36415; 80053; 82962; 83036; 85027; 86780; 93005; 93010; J0735; U0003

== ENCOUNTER 2020-05-03 04:38 | Day surgery (SDC) | payer OTHER ==
[2020-05-02 14:19] VITALS: BMI 27.9
--- OUTSIDE RECORDS SUMMARY | 2020-05-03 04:40 | XMS ---
:1970 Author Organization [facility] Support Name Relationship Address Phone [facility], RE[facility] Unavailable [address] [place] [address] VIOLETTA CALDERON FRIEND [address] [place] [address] [employer] Unavailable [facility] [place] [address] [facility] Unavailable [facility] [place] [address] UE Unavailable Unavailable Unavailable [facility] Unavailable [address] [facility] [place] [address] VIOLETTA FREEDMAN BROTHER [address] [place] [address] VIOLETTA CALDERON Other [place] [address] Re-disclosure Warning The records that you are about to access may contain information from federally- assisted alcohol or drug abuse programs. If such information is present, then the following federally mandated warning applies: This information has been disclosed to you from records protected by federal confidentiality rules (42 CFR part 2). The federal rules prohibit you from making any further disclosure of this information unless further disclosure is expressly permitted by the written consent of the person to whom it pertains or as otherwise permitted by 42 CFR part 2. A general authorization for the release of medical or other information is NOT sufficient for this purpose. The Federal rules restrict any use of the information to criminally investigate or prosecute any alcohol or drug abuse patient.The records that you are about to access may contain highly sensitive health information, the redisclosure of which is protected by Article 27-F of the [facility] Public Health law. If you continue you may haveaccess to information: Regarding HIV / AIDS; Provided by facilities licensed or operated by the [facility] Office of Mental Health; or Provided by the [facility] Office for People With Developmental Disabilities. If such information is present, then the following [facility] mandated warning applies: This information has been disclosed to you from confidential records which are protected by state law. State law prohibits you from making any further disclosure of this information without the specific written consent of the person to whom it pertains, or as otherwise permitted by law. Any unauthorized further disclosure in violation of state law may result in a fine or detention sentence or both. A general authorization for the release of medical or other information is NOT sufficient authorization for further disclosure. Encounters Encounter Providers Location Date Indications Data Source(s ) Outpatient 11/30/2018 07:47:28 [facility] ( [facility]) Insurance Providers Payer name Policy type Policy ID Covered Covered green party's Policy P kumar / Coverage green party ID relationship to [place] [employer] ormation type [place] [employer] [id number] SP [id number] [place] [id number] [place] [id number] HMO MVP MEDICAID [id number] SP [id number] HMO TRIAD [id number] SP [id number] TRIAD [id number] SP [id number] MVP MEDICAID [id number] SP [id number] HMO DOCKERY [id number] SP [id number] 200 HEALTH PLAN DOCKERY [id number] SP [id number] HEALTH PLAN MVP [place] [id number] [place] [id number] HMO PENDING [id number] SP [id number] WC/NF ONLY MVP [place] [id number] [place] [id number] HMO Results ID Date Data Source [id number] 04/29/2020 12:40:00 PM EDT [facility] Name Value Range Interpretation Description Data Sup porting Code Source(s) Document(s ) SARS [facility] coronavirus 2 RNA This lab was ordered by [facility] and reported by [facility]. ID Date Data Source [id number] 02/09/2020 03:15:00 PM EDT [facility] Name Value Range Interpretation Description Data Sup porting Code Source(s) Document(s ) SARS [facility] coronavirus 2 RNA This lab was ordered by [facility] Ac ct [facility] and reported by [facility]. Procedure
--- NOTE | 2020-05-03 09:11 | HP ---
[facility] - Chief Complaint Chief Complaint: left shoulder pain - Past Medical History Allergies/Adverse Reactions: Allergies Allergy/AdvReac Type Severity Reaction Status Date / Time Penicillins Allergy Intermediate Verified 05/02/20 16:03 - Current Medications Current Medications: Home Medications Medication Instructions Recorded Omeprazole 20 mg PO DAILY 06/14/18 Lisinopril [Prinivil] 10 mg PO DAILY #14 tablet 06/18/18 Metformin HCl [Glucophage] 1,000 mg PO BID #30 tablet 06/18/18 Simvastatin [Zocor -] 20 mg PO HS #14 tablet 06/18/18 Satellite Physical Exam - Physical Examination Vital Signs: Vital Signs Period Temp Pulse Resp BP Sys/Alonso Pulse Ox Last 24 Hr 96.8 F 80 18 118/71 98-98 General Appearance: Well Nourished, Well Developed, Alert & Oriented x3 ENT: Clear Lung: Normal air movement Extremities: Other (left shoulder- + ttp, decr rom, + neer, + foley, nvi) Neurological: Intact, Alert, Oriented Satellite Impression/Plan - Impression/Plan Impression: left shoulder impingement Operative Procedure: left shoulder arthroscopy with SAD Date to be Performed: 05/03/20
[2020-05-03] MEDS ORDERED: ROPIVACAINE HCL 0.5% 30ML VIAL ONE (10:16)
[2020-05-03] MEDS ORDERED: MIDAZOLAM HCL 2 MG/2 ML SINGLE DOSE VIAL ONE ×5 (10:17→10:42)
[2020-05-03] MEDS ORDERED: PROPOFOL 20 ML ONE ×5 (10:53→11:14)
[2020-05-03] MEDS ORDERED: ceFAZolin SODIUM 1 GM VIAL IVPB ONE (11:18)
[2020-05-03] MEDS ORDERED: ceFAZolin SODIUM 1 GM VIAL ONE (11:23)
[2020-05-03] MEDS ORDERED: DEXAMETHASONE SOD PHOSPHATE 4 MG/1 ML VIAL ONE (11:34)
--- NOTE | 2020-05-03 12:10 | OP ---
Operative Note - Note: Operative Date: 05/03/20 ([facility]) Pre-Operative Diagnosis: left shoulder impingement, partial rct Operation: left shoulder arthroscopy SAD, rotator cuff repair Post-Operative Diagnosis: Same as Pre-op Surgeon: Prabhakar Leone Molding Manager: Alexandre Escamilla Anesthesia: General, Local Specimens Removed: shavings Estimated Blood Loss (mls): 5
[2020-05-03] MEDS ORDERED: ONDANSETRON 4 MG/2 ML VIAL IVPUSH PRN (13:27)
[2020-05-03] MEDS ORDERED: oxyCODONE HCL 5 MG TABLET PO PRN ×2 (13:27)
[2020-05-03] MEDS ORDERED: LACTATED RINGERS SOLUTION 1,000 ML IV SCH (13:30)
[2020-05-03 14:39] VITALS: BP 119/60; PULSE 86; TEMP 98
--- NOTE | 2020-05-03 20:35 | OP ---
DATE OF OPERATION: 05/03/2020 PREOPERATIVE DIAGNOSIS: Left shoulder impingement and partial rotator cuff tear. POSTOPERATIVE DIAGNOSIS: Left shoulder impingement and partial rotator cuff tear. PROCEDURE: Left shoulder arthroscopy subacromial decompression and rotator cuff repair with Baeza and Nephew bioinductive implant. SURGICAL ATTENDING: Prabhakar Leone MD. MARKETING SECRETARY: SOPHIA Olson. ANESTHESIA: Regional and general. CLOSURE: A 24-mm Baeza and Nephew bioinductive implant with soft tissue eunice, 3-0 nylon for skin. ESTIMATED BLOOD LOSS: Negligible. COMPLICATIONS: None. CONDITION: To recovery in stable condition. DESCRIPTION OF OPERATIVE PROCEDURE: DESCRIPTION OF OPERATIVE PROCEDURE: Patient taken to the operating room on May 03, 2020. Regional and general anesthesia was administered per the anesthesiologist. IV Kefzol was administered prophylactically prior to the case. The patient was placed in the beach chair position with all prominences well padded. The left shoulder area was prepped and draped in the usual sterile fashion. First diagnostic arthroscopy of the glenohumeral joint was performed. Posterior portal was made 2 fingerbreadths below the acromion first with a 15-blade followed by a blunt trocar. Circumferential exam of the glenohumeral joint revealed the following: intact glenoid and humeral head articular cartilage, intact labrum circumferentially, intact biceps and biceps anchor, no loose bodies in the axillary pouch, intact subscapularis to its insertion. Looking superiorly, the rotator cuff was mostly intact; however, the most anterior portion of the supraspinatus tendon was found to be frayed; this was debrided using the shaver. This area was tagged as well to visualize it from superiorly. The scope was removed from the shoulder. Next, the posterior trocar was redirected in the subacromial space accessory lateral portal was then made 15-blade followed by blunt trocar. Large amount of bursal tissue in the subacromial space was encountered once debrided using the ArthroCare device and a shaver. Coracoacromial ligament was identified, detached off the anterior acromials further debrided. A large anterior spur was encountered, and acromioplasty was then performed, gaining appropriate height between the acromion and the humeral head below. Soft tissue encasing the humeral head was debrided using the shaver and the ArthroCare device, exposing the rotator cuff beneath. The rotator cuff was found to be intact however at the area that was demarcated from beneath. The rotator cuff was found to be significantly thinned, was able to easily penetrate from the outside using a probe into the shoulder joint. This was deemed a significant partial thickness tear deemed necessary for augmentation. The area was trephinated a great deal to stimulate a bloody ingrowth. A Baeza and Nephew bioinductive implant was then chosen, the smaller size a 24-mm. This was introduced into the shoulder via the lateral portal. The more anterior portal was then used to deliver multiple soft tissue eunice in the corners and essentially the implant essentially on its edges of the implant to fixate the implant to the portion of the tendon that was sufficiently significantly torn. Probing of the implant revealed excellent adherence of the implant to the rotator cuff. Range of motion of the shoulder revealed good stability of the implant, and also good clear subacromial space. The shoulder was drained of its fluid, trocars were removed, and then all trocar portal sites were closed using 3-0 nylon horizontal mattress sutures. Sterile pressure dressing followed by shoulder immobilizer was applied, patient awakened from anesthesia and transferred to recovery in stable condition. No complications. Estimated blood loss negligible. [place] [id number]
--- NOTE | 2020-05-05 13:07 | PATH ---
Surgical Pathology Report Patient Name: VASILIY FREEDMAN Med. Rec. #: [id number] /Age/Gender: 1970 (Age: 50) / M Account: [id number] Location: [facility] SURGICAL Taken: 05/03/2020 Received: 05/03/2020 Reported: 05/05/2020 Physicians: Prabhakar Leone M.D. Specimen(s) Received LEFT SHOULDER SHAVINGS Clinical History Left shoulder impingement syndrome Final Diagnosis SHOULDER, ARTHROSCOPIC SHAVINGS: FIBROSYNOVIAL TISSUE, BONE, CARTILAGE AND SKELETAL MUSCLE. Electronically Signed Lo Mackay M.D. Gross Description Received in formalin, labeled "left shoulder shavings," is a 3.5 x 3.0 x 0.5 cm. aggregate of asher-yellow soft tissue fragments. A passenger relations representative portion is submitted in one cassette. DL/05/03/2020 saudi/05/03/2020
== END 2020-05-03 14:40 | disposition home or self-care (01) ==
LOC: JASU-SURG 04:38
PROVIDERS: ATTEND Orthopaedic Surgery
PROC: 0LQ24ZZ Repair Left Shoulder Tendon, Percutaneous Endoscopic Approach (ICD-10-PCS; 2020-05-03)
PROC: 0RNK4ZZ Release Left Shoulder Joint, Percutaneous Endoscopic Approach (ICD-10-PCS; principal; 2020-05-03 10:15)
DX: M75.42 Impingement syndrome of left shoulder (principal); M75.102 Unspecified rotator cuff tear or rupture of left shoulder, not specified as traumatic
CPT/HCPCS: 82962; 88304-TC; 94760